=== PATIENT | female | born 1995 | race Two or more races ===

== ENCOUNTER 2019-06-05 23:16 | Emergency (ER) ==
[2019-06-06 00:34] VITALS: BP 104/69
[2019-06-06] MEDS ORDERED: ACETAMINOPHEN 325 MG TABLET PO ONE (00:38)
== END 2019-06-06 03:14 | disposition left against medical advice (07) ==
LOC: ER 23:16
DX: Z53.21 Procedure and treatment not carried out due to patient leaving prior to being seen by health care provider (principal)